=== PATIENT | male | born 1975 | race Caucasian/White ===

== ENCOUNTER → 2018-12-01 | Outpatient (CLI) | payer OTHER ==
--- NOTE | 2018-12-26 10:10 | PFR/MVV ---
[facility] [place] [address] PULMONARY FUNCTION MVV/REPORT Name: CHINANATASHA Room #: REG WILLARD Garcia#: [id number] Admission: 12/01/18 Attend Phys: Emery Gutierrez MD Discharge: Date of : 75 Report #: [id number] THIS REPORT FOR: //name// COPIES FOR: AGE: 43 SEX/RACE: M/C >> SPIROMETRY: (BTPS) Height: 76 in cm Weight: 246 lbs kg Exam Date: 12/01/18 PRE-RX POST-RX PRED BEST %PRED BEST %PRED %CHG FVC LITERS . 5.93 . 4.82 . 81 . 5.82 . 98 . 21 FEV1 LITERS . 4.36 . 3.23 . 74 . 4.28 . 98 . 32 FEV1/FVC % . 73 . 67 . 92 . 74 . 101 . 10 HSS06-33% L/Sec . 4.15 . 1.97 . 47 . 3.48 . 84 . 77 PEF L/SEC . 10.64 . 7.14 . 67 . 6.91 . 65 . -3 FEF50/FIF50 UNITLESS . . 0.89 . . 2.32 . . 161 MVV L/Min . 182 . 57 . 31 f 1/Min . . 205 . >> LUNG VOLUMES: (BTPS) PRE-RX POST-RX PRED AVG %PRED AVG %PRED %CHG VC Liters . 5.93 . 4.82 . 81 . . . TLC Liters . 8.35 . 6.22 . 75 . . . RV Liters . 2.49 . 1.40 . 56 . . . RV/TLC % . 31 . 22 . 72 . . . FRC [address] Liters . 4.21 . 1.81 . 43 . . . FRC N2 Liters . . . . . . ERV Liters . 1.98 . 0.41 . 21 . . . IC Liters . 3.97 . 2.86 . 72 . . . >> DIFFUSION: DLCO ml/Min/mmHg . . . . . . DL Alex ml/Min/mmHg . . . . . . DLCO/VA ml/Min/mmHg . . . . . . VA Liters . . . . . . [facility] [address] [place] [address] PULMONARY FUNCTION MVV/REPORT Name: CHINANATASHA Room #: TE YOMadina Garcia#: [id number] Admission: 12/01/18 Attend Phys: Emery Gutierrez MD Discharge: Date of : 75 Report #: [id number] COMMENTS: COMMENTS: >> RESISTANCE: PRE-RX PRED AVG %PRED Raw Total cmH20/L/Sec . . 15.80 . Raw Insp cmH20/L/Sec . . 14.86 . Raw Exp cmH20/L/Sec . . 13.08 . Raw cmH20/L/Sec . 1.02 . 13.71 . 1338 Gaw L/Sec/cmH20 . 1.011 . 0.073 . 7 sRaw cmH20 Sec . 4.32 . 33.29 . 771 sGaw l/cmH20 Sec . 0.232 . 0.030 . 13 Vtq Liters . . 2.43 . # = OUTSIDE 95% CONFIDENCE INTERVAL CALIBRATION: PRED: 3.00 ACTUAL: EXP 3.01 INSP 3.02 [facility]-OL10-06 [facility]-05 N-1804-4 >> INTERPRETATION/IMPRESSION: CC: Emery Gutierrez PULMONARY FUNCTION STUDY SPIROMETRY: FEV1 is 3.23 liters (74%), FVC is 4.82 liters (81%). FEV1/FVC ratio is 67%. Postbronchodilator therapy FEV1 increased to 4.28 liters (32% change), FVC increased to 5.82 liters (21% change). LUNG VOLUMES: Total lung capacity 6.22 liters (75%). IMPRESSION: Pulmonary function studies are consistent with a mild obstructive airflow defect with a significant response to bronchodilator therapy. Total lung capacity is slightly reduced. <ELECTRONICALLY SIGNED> By: Gamal Tyler MD 12/26/18 1010 Gamal Tyler MD /nt
== END ==
LOC: PUL 10:03
DX: J45.909 Unspecified asthma, uncomplicated (principal)